=== PATIENT | female | born 1980 | race Caucasian/White ===

== ENCOUNTER 2018-02-17 08:09 | Emergency (ER) | payer BC ==
[2018-02-17 08:16] VITALS: BP 134/94
--- NOTE | 2018-02-17 09:31 | ED ---
Throat Pain/Nasal Congestion - HPI Summary HPI Summary: patient awoke with R ear pain this am which radiates to R jaw - History of Current Complaint Chief Complaint: UCEar Time Seen by Provider: 02/17/18 09:20 Hx Obtained From: Patient Onset/Duration: Sudden Onset Severity: Mild Associated Signs And Symptoms: Negative: Sinus Discomfort, Nasal Discharge - Allergies/Home Medications Allergies/Adverse Reactions: Allergies Allergy/AdvReac Type Severity Reaction Status Date / Time No Known Allergies Allergy Verified 02/17/18 08:16 Home Medications: Home Medications Acetaminophen 650 mg PO 02/17/18 [History] PMH/Surg Hx/FS Hx/Imm Hx Previously Healthy: Yes - Surgical History Surgery Procedure, Year, and Place: gallbladder, t&a Infectious Disease History: No Infectious Disease History: Denies: Traveled Outside the [place] in Last 30 Days - Family History Known Family History: Positive: None Negative: Cardiac Disease, Diabetes - Social History Occupation: Unemployed Lives: With Family Alcohol Use: Rare Substance Use Type: Reports: None Smoking Status (MU): Never Smoked Tobacco Review of Systems Constitutional: Negative Negative: Fever, Chills Eyes: Negative Positive: Ear Ache Cardiovascular: Negative Respiratory: Negative Negative: Cough Gastrointestinal: Negative Musculoskeletal: Negative Skin: Negative Neurological: Negative Psychological: Normal All Other Systems Reviewed And Are Negative: Yes Physical Exam Triage Information Reviewed: Yes Vital Signs On Initial Exam: Initial Vitals Temp Pulse Resp BP Pulse Ox 98.3 F 85 18 134/94 100 02/17/18 08:13 02/17/18 08:13 02/17/18 08:13 02/17/18 08:13 02/17/18 08:13 Vital Signs Reviewed: Yes Appearance: Positive: Well-Appearing, No Pain Distress, Well-Nourished Skin: Positive: Warm Head/Face: Positive: TMJ Tenderness - Right side Eyes: Positive: Normal ENT: Positive: Pharynx normal, TMs normal Dental: Negative: Percussion Tenderness @, Gross Decay/Caries @ Neck: Positive: No Lymphadenopathy Respiratory/Lung Sounds: Positive: Clear to Auscultation Cardiovascular: Positive: Normal Neurological: Positive: Normal Diagnostics - Vital Signs Vital Signs Temp Pulse Resp BP Pulse Ox 02/17/18 08:13 98.3 F 85 18 134/94 100 - Laboratory Lab Statement: Any lab studies that have been ordered have been reviewed, and results considered in the medical decision making process. EENT Course/Dx - Differential Diagnoses Differential Diagnoses: Dental Caries, Otitis Externa, Otitis Media, Sinusitis, TMJ Syndrome - Diagnoses Provider Diagnoses: TMJ (temporomandibular joint syndrome) Discharge - Sign-Out/Discharge Documenting (check all that apply): Patient Departure All imaging exams completed and their final reports reviewed: No Studies - Discharge Plan Condition: Good Disposition: HOME Patient Education Materials: Temporomandibular Disorder (ED) Referrals: Anh Brian PA [Primary Care Provider] - 1 Week (if no better) Additional Instructions: soft diet use ibuprofen 600mg every 6 hours with food for 3-5 days apply warm packs to Right side of jaw use bite guard at bedtime as discussed - Billing Disposition and Condition Condition: GOOD Disposition: Home
== END 2018-02-17 09:42 | disposition home or self-care (01) ==
LOC: UCEAST 08:09
DX: M26.601 Right temporomandibular joint disorder, unspecified (principal)
CPT/HCPCS: 99211; G0463